=== PATIENT | female | born 1985 | race Caucasian/White ===

== ENCOUNTER 2020-11-08 14:12 | Observation (INO) ==
[2020-11-08] MEDS ORDERED: Orphenadrine 60 MG/2 ML VIAL IM ONE (14:56)
[2020-11-08] MEDS ORDERED: Ketorolac 60 MG/2 ML VIAL IM ONE (14:56)
[2020-11-08] MEDS ORDERED: Isovue-370 500 ML BOTTLE IVP ONE (14:58)
[2020-11-08 16:08] LABS: Basophils % 0.4 %; Eosinophils # 0.1 K/mcL (0.0-0.6); Eosinophils % 0.7 %; Hemoglobin 12.5 g/dL (11.5-15.4); Immature Granulocytes % 0.2 % (0-4); Lymphocytes # 1.7 K/mcL (0.6-4.6); Lymphocytes % 20.8 %; Mean Corpuscular HGB Conc 32.1 g/dL (31.6-35.5); Mean Corpuscular Hemoglobin 26.4 pg (28.0-33.3); Mean Corpuscular Volume 82.3 fL (83.0-100.0); Mean Platelet Volume 8.6 fL (9.4-12.4); Monocytes # 0.5 K/mcL (0.0-1.3); Monocytes % 5.9 %; Platelet Count 402 K/mcL (140-400); Red Blood Count 4.74 M/mcL (3.82-4.97); Red Cell Distribution Width 13.7 % (11.5-14.5); White Blood Count 8.3 K/mcL (4.3-11.1)
[2020-11-08 16:31] LABS: Alanine Aminotransferase 12 Units/L (7-52); Albumin 3.5 g/dL (3.5-5.7); Albumin/Globulin Ratio 0.7 (1.1-2.2); Alkaline Phosphatase 67 Units/L (34-104); Aspartate Amino Transferase 12 Units/L (13-39); BUN/Creatinine Ratio 30 (6-26); Bilirubin,Direct 0.1 mg/dL (0.0-0.2); Bilirubin,Indirect 0.1 mg/dL (0.0-1.0); Bilirubin,Total 0.2 mg/dL (0.3-1.0); Blood Urea Nitrogen 15 mg/dL (6-20); C-Reactive Protein 66 mg/L (Less than 10); Calcium 9.4 mg/dL (8.6-10.3); Carbon Dioxide 26 mEq/L (23-29); Chloride 100 mEq/L (98-107); Globulin 5.1 g/dL (2.4-3.5); Glucose 82 mg/dL (70-105); Osmolality,Calculated 274 (280-300); Potassium 4.2 mEq/L (3.5-5.1); Sodium 132 mEq/L (136-145); Total Protein 8.6 g/dL (6.4-8.9); eGFR For African Americans > 60 (> 60); eGFR For Non-African Americans > 60 (> 60)
[2020-11-08] MEDS ORDERED: 0.9 % Sodium Chloride 1,000 ML IVC ONE (18:18)
[2020-11-08 18:36] LABS: Bacteria,Urine Moderate per hpf (None-Few); Bilirubin,Urine Negative (Negative); Blood,Urine Small (Negative); Clarity,Urine Turbid (Clear); Color,Urine Yellow (Yellow); Glucose,Urine (UA) Normal (Normal); Ketones,Urine Negative (Negative); Leukocyte Esterase,Urine Large (Negative); Mucus,Urine Few per lpf (None-Few); Nitrite,Urine Positive (Negative); PH,Urine 6.5 pH Units (5.0-8.0); Protein,Urine Trace mg/dL (Neg-Trace); Specific Gravity,Urine > 1.030 (1.010-1.025); Squamous Epithelial Cell,Urine Few per hpf (None-Few); WBC,Urine TNTC per hpf (0-3)
[2020-11-08] MEDS ORDERED: *HR* LORazepam 2 MG/ML VIAL IVP ONE ×2 (19:59→22:31)
[2020-11-08] MEDS ORDERED: diazePAM 10 MG/2 ML SYRINGE IVP ONE (20:05)
[2020-11-08] MEDS ORDERED: Acetaminophen 325 MG TABLET PO PRN (20:15)
[2020-11-08] MEDS ORDERED: *HR* Promethazine 25 MG/ML VIAL IM PRN (20:15)
[2020-11-08] MEDS ORDERED: Ondansetron 4 MG/2 ML VIAL IVP PRN (20:15)
[2020-11-08] MEDS ORDERED: Naloxone 0.4 MG/ML INJ IVP PRN (20:15)
[2020-11-08] MEDS ORDERED: Ringers Solution, Lactated 1,000 ML IVC SCH (20:15)
[2020-11-08] MEDS ORDERED: Gadolinium Contrast Agent (WT Based) IV PRN ×2 (20:26→22:27)
[2020-11-08] MEDS ORDERED: Nicotine 14 MG PATCH.TD24 TD ONE (22:35)
[2020-11-08] MEDS: *HR* Buprenorphine HCl 8 MG TAB.SUBL SL SCH (22:45)
[2020-11-09] MEDS ORDERED: Nicotine 14 MG PATCH.TD24 TD ONE ×2 (02:52→20:00)
[2020-11-09] MEDS: Ketorolac 15 MG/ML VIAL IVP PRN ×2 (04:33→10:33)
[2020-11-09] MEDS: *HR* Buprenorphine HCl 8 MG TAB.SUBL SL SCH (08:41)
[2020-11-09 10:18] VITALS: BP 138/89
[2020-11-09] MEDS ORDERED: Vancomycin (wt based) 1,000 MG VIAL IVPB SCH (12:00)
[2020-11-09] MEDS ORDERED: Cefepime HCl 2,000 MG in Water for inj. (sterile) 20 ML IVP SCH (12:00)
[2020-11-10] MEDS ORDERED: diazePAM 10 MG/2 ML SYRINGE IM ONE (01:01)
== END 2020-11-09 13:25 | disposition left against medical advice (07) ==
LOC: 3NENU 14:12 → EMEROOARM 14:12 → 3NENU 21:48
PROVIDERS: ADMIT Internal Medicine; ATTEND Internal Medicine

== ENCOUNTER 2020-11-09 21:22 | Inpatient (IN) ==
[2020-11-10 01:15] LABS: Basophils % 0.3 %; Eosinophils % 0.3 %; Hematocrit 33.7 % (35.3-44.9); Immature Granulocytes % 0.4 % (0-4); Lymphocytes # 1.8 K/mcL (0.6-4.6); Lymphocytes % 17.4 %; Mean Platelet Volume 8.9 fL (9.4-12.4); Monocytes # 0.7 K/mcL (0.0-1.3); Monocytes % 6.8 %; Neutrophils # 7.7 K/mcL (1.6-8.9); Platelet Count 366 K/mcL (140-400); Red Blood Count 4.16 M/mcL (3.82-4.97); Red Cell Distribution Width 13.5 % (11.5-14.5); Segmented Neutrophils % 74.8 %; White Blood Count 10.3 K/mcL (4.3-11.1)
[2020-11-10 01:17] LABS: Hemoglobin 10.8 g/dL (11.5-15.4)
[2020-11-10 01:30] LABS: BUN/Creatinine Ratio 23 (6-26); Blood Urea Nitrogen 11 mg/dL (6-20); Carbon Dioxide 23 mEq/L (23-29); Chloride 103 mEq/L (98-107); Glucose 109 mg/dL (70-105); Osmolality,Calculated 278 (280-300); Potassium 3.5 mEq/L (3.5-5.1); Sodium 134 mEq/L (136-145); eGFR For African Americans > 60 (> 60); eGFR For Non-African Americans > 60 (> 60)
[2020-11-10] MEDS ORDERED: 0.9 % Sodium Chloride 1,000 ML IVC ONE (02:27)
[2020-11-10] MEDS ORDERED: Ondansetron 4 MG/2 ML VIAL IVP PRN (04:39)
[2020-11-10] MEDS ORDERED: Naloxone 0.4 MG/ML INJ IVP PRN (04:39)
[2020-11-10] MEDS ORDERED: Ketorolac 30 MG/ML VIAL IVP PRN (04:43)
[2020-11-10] MEDS ORDERED: 0.9 % Sodium Chloride 1,000 ML IVC SCH (04:45)
[2020-11-10] MEDS: Cefepime HCl 2,000 MG in 0.9 % Sodium Chloride Mini Bag 100 ML IVPB SCH ×2 (08:15→15:35)
[2020-11-10] MEDS: *HR* Buprenorphine HCl 8 MG TAB.SUBL SL SCH ×2 (08:15→08:24)
[2020-11-10] MEDS ORDERED: Nicotine 21 MG PATCH.TD24 TD SCH (11:00)
[2020-11-10 12:53] LABS: INR 1.2; Prothrombin Time 13.6 Seconds (9.4-12.1)
[2020-11-10 12:55] LABS: Activated Partial Thrombo Time 26.7 Seconds (26.0-36.0)
[2020-11-10 15:35] VITALS: BP 135/81
[2020-11-10 15:54] LABS: Amphetamine Screen,Urine Negative ng/mL (Cutoff=1000); Barbiturate Screen,Urine Negative ng/mL (Cutoff=200); Benzodiazepines Screen,Urine Negative ng/mL (Cutoff=200); Cannabinoid Screen,Urine Negative ng/mL (Cutoff = 50); Cocaine Screen,Urine Negative ng/mL (Cutoff= 300); Opiate Screen,Urine Negative ng/mL (Cutoff=300); Phencyclidine Screen,Urine Negative ng/mL (Cutoff=25)
== END 2020-11-10 18:20 | disposition left against medical advice (07) | DRG 344 ==
LOC: 3BNU 21:22 → EMEROOARM 21:22 → SUATTDRO 11-10 04:00 → 3BNU 11-10 04:41
PROVIDERS: ADMIT Family Medicine; ATTEND Internal Medicine

== ENCOUNTER 2020-11-12 15:56 | Observation (INO) ==
[2020-11-12] MEDS ORDERED: *HR* HYDROmorphone (PF) 1 MG/ML SYRINGE IVP ONE (18:02)
[2020-11-12] MEDS ORDERED: Ondansetron 4 MG/2 ML VIAL IVP ONE (18:05)
[2020-11-12 18:06] LABS: Hematocrit 33.7 % (35.3-44.9); Hemoglobin 10.9 g/dL (11.5-15.4); Mean Corpuscular HGB Conc 32.3 g/dL (31.6-35.5); Mean Corpuscular Hemoglobin 26.8 pg (28.0-33.3); Mean Corpuscular Volume 82.8 fL (83.0-100.0); Mean Platelet Volume 8.8 fL (9.4-12.4); Platelet Count 366 K/mcL (140-400); Red Blood Count 4.07 M/mcL (3.82-4.97); Red Cell Distribution Width 13.6 % (11.5-14.5); White Blood Count 9.7 K/mcL (4.3-11.1)
[2020-11-12 18:19] LABS: BUN/Creatinine Ratio 22 (6-26); Blood Urea Nitrogen 11 mg/dL (6-20); Calcium 9.3 mg/dL (8.6-10.3); Carbon Dioxide 27 mEq/L (23-29); Chloride 101 mEq/L (98-107); Glucose 90 mg/dL (70-105); Osmolality,Calculated 279 (280-300); Potassium 3.5 mEq/L (3.5-5.1); Sodium 135 mEq/L (136-145); eGFR For African Americans > 60 (> 60); eGFR For Non-African Americans > 60 (> 60)
[2020-11-12] MEDS ORDERED: Ondansetron 4 MG/2 ML VIAL IVP PRN (19:18)
[2020-11-12] MEDS ORDERED: Acetaminophen 325 MG TABLET PO PRN (19:18)
[2020-11-12] MEDS ORDERED: Naloxone 0.4 MG/ML INJ IVP PRN (19:18)
[2020-11-12] MEDS: Ketorolac 30 MG/ML VIAL IVP PRN ×2 (20:12→22:25)
[2020-11-12] MEDS: 0.9 % Sodium Chloride 1,000 ML IVC SCH (22:21)
[2020-11-13] MEDS: Cefepime HCl 2,000 MG in Water for inj. (sterile) 20 ML IVP SCH ×2 (00:54→08:31)
[2020-11-13] MEDS ORDERED: Nicotine 14 MG PATCH.TD24 TD SCH (03:15)
[2020-11-13] MEDS: Ketorolac 30 MG/ML VIAL IVP PRN ×2 (04:34→10:26)
[2020-11-13 04:57] LABS: Basophils % 0.5 %; Eosinophils # 0.1 K/mcL (0.0-0.6); Eosinophils % 0.9 %; Hemoglobin 10.5 g/dL (11.5-15.4); Immature Granulocytes % 0.5 % (0-4); Lymphocytes # 1.8 K/mcL (0.6-4.6); Lymphocytes % 24.4 %; Mean Corpuscular HGB Conc 31.8 g/dL (31.6-35.5); Mean Corpuscular Hemoglobin 25.6 pg (28.0-33.3); Mean Corpuscular Volume 80.5 fL (83.0-100.0); Mean Platelet Volume 9.2 fL (9.4-12.4); Monocytes # 0.7 K/mcL (0.0-1.3); Monocytes % 9.3 %; Neutrophils # 4.8 K/mcL (1.6-8.9); Platelet Count 371 K/mcL (140-400); Red Cell Distribution Width 13.5 % (11.5-14.5); Segmented Neutrophils % 64.4 %; White Blood Count 7.5 K/mcL (4.3-11.1)
[2020-11-13 05:09] LABS: Alanine Aminotransferase 7 Units/L (7-52); Albumin 3.1 g/dL (3.5-5.7); Albumin/Globulin Ratio 0.8 (1.1-2.2); Alkaline Phosphatase 56 Units/L (34-104); Aspartate Amino Transferase 10 Units/L (13-39); BUN/Creatinine Ratio 34 (6-26); Bilirubin,Total 0.3 mg/dL (0.3-1.0); Blood Urea Nitrogen 15 mg/dL (6-20); Calcium 8.7 mg/dL (8.6-10.3); Carbon Dioxide 24 mEq/L (23-29); Chloride 107 mEq/L (98-107); Globulin 4.1 g/dL (2.4-3.5); Glucose 90 mg/dL (70-105); Osmolality,Calculated 286 (280-300); Potassium 4.2 mEq/L (3.5-5.1); Sodium 138 mEq/L (136-145); Total Protein 7.2 g/dL (6.4-8.9); eGFR For African Americans > 60 (> 60); eGFR For Non-African Americans > 60 (> 60)
[2020-11-13 07:10] VITALS: BP 110/70
[2020-11-13] MEDS: 0.9 % Sodium Chloride 1,000 ML IVC SCH (08:35)
== END 2020-11-13 11:20 | disposition left against medical advice (07) ==
LOC: 3ANU 15:56 → EMEROOARM 15:56 → SUATTDRO 19:42 → 3ANU 20:39
PROVIDERS: ADMIT Internal Medicine; ATTEND Family Medicine